=== PATIENT | female | born 1985 | race Caucasian/White ===

== ENCOUNTER 2017-03-16 14:39 | Outpatient (CLI) | payer MEDICAID ==
[~2017-03-16] VITALS: Ht 167.6 cm; Wt 81.8 kg
[2017-03-16 14:59] VITALS: BP 107/61; PULSE 85; TEMP 98.1
[2017-03-16] MEDS ORDERED: MACROBID 1100 MG/CAP PO (15:05)
[2017-03-16] MEDS ORDERED: PRENATAL MVI (15:06)
[2017-03-16] MEDS ORDERED: PROCARDIA XL 3030 MG PO (15:06)
[2017-03-16 16:00] VITALS: BP 108/61; PULSE 81
== END 2017-03-16 16:15 | disposition home or self-care (01) ==
LOC: LDRO 14:39
DX: O99.89 Other specified diseases and conditions complicating pregnancy, childbirth and the puerperium (principal); Z3A.00 Weeks of gestation of pregnancy not specified
CPT/HCPCS: J0696